=== PATIENT | female | born 1950 | race American Indian/Alaskan Native ===

== ENCOUNTER 2016-04-08 13:21 | Outpatient (CLI) | payer MEDICARE ==
--- NOTE | 2016-04-09 13:17 | Mammography Report ---
BILATERAL DIGITAL SCREENING MAMMOGRAM WITH CAD: 04/08/16 13:21:00 CLINICAL: Routine screening. COMPARISON:02/27/13 FINDINGS: The breasts are heterogeneously dense and sufficiently dense to limit the sensitivity of mammography. 2 groups of left calcifications require additional imaging. No mass or architectural distortion. The right breast is negative. IMPRESSION: Left calcifications requiring further workup. BI-RADS CATEGORY: 0 -- Additional Imaging Evaluation Required RECOMMENDATION: Recall for left ML and spot magnification CC and ML views. ACR BI-RADS MAMMOGRAPHIC CODES: 0 = Needs additional imaging evaluation; 1 = Negative; 2 = Benign; 3 = Probably benign; 4 = Suspicious; 5 = Malignant; 6 = Known biopsy-proven malignancy COMMENT: 1. Dense breast tissue, i.e., adenosis, fibrocystic changes, etc., may obscure an underlying neoplasm. 2. Approximately 10% of cancers are not detected with mammography. 3. A negative mammography report should not delay biopsy if a clinically suspicious mass is present. COMMENT: Patient follow-up letters are generated via our [employer] application.
== END 2016-04-08 13:22 | disposition home or self-care (01) ==
LOC: SPVWC 13:21
DX: Z12.31 Encounter for screening mammogram for malignant neoplasm of breast (principal)
CPT/HCPCS: 77067; G0202

== ENCOUNTER 2016-05-01 14:42 | Outpatient (CLI) | payer MEDICARE ==
--- NOTE | 2016-05-01 15:38 | Mammography Report ---
LEFT DIGITAL DIAGNOSTIC MAMMOGRAM : 05/01/16 14:42:00 CLINICAL: Recall for calcifications. COMPARISON:04/08/16 screening. FINDINGS: ML and ML and CC magnification views were performed and demonstrate three groups of probably benign calcifications. The largest group is located in the upper-outer quadrant and consists of a greater number of more punctate lower density calcifications than two other groups. No layering on the lateral view. No associated mass or architectural distortion. IMPRESSION: Probably benign calcifications BI-RADS CATEGORY: 3 -- Probably Benign RECOMMENDATION: 6 month follow-up magnification views of the left breast. ACR BI-RADS MAMMOGRAPHIC CODES: 0 = Needs additional imaging evaluation; 1 = Negative; 2 = Benign; 3 = Probably benign; 4 = Suspicious; 5 = Malignant; 6 = Known biopsy-proven malignancy COMMENT: 1. Dense breast tissue, i.e., adenosis, fibrocystic changes, etc., may obscure an underlying neoplasm. 2. Approximately 10% of cancers are not detected with mammography. 3. A negative mammography report should not delay biopsy if a clinically suspicious mass is present. COMMENT: Patient follow-up letters are generated by our [employer] application.
== END 2016-05-01 14:43 | disposition home or self-care (01) ==
LOC: SPVWC 14:42
DX: R92.1 Mammographic calcification found on diagnostic imaging of breast (principal); R92.8 Other abnormal and inconclusive findings on diagnostic imaging of breast
CPT/HCPCS: G0206-LT

== ENCOUNTER 2016-10-27 13:14 | Outpatient (CLI) | payer MEDICARE ==
--- NOTE | 2016-10-27 15:48 | Mammography Report ---
LEFT DIGITAL DIAGNOSTIC MAMMOGRAM : 10/27/16 13:14:00 CLINICAL: Six month follow-up calcifications. COMPARISON:05/01/16 FINDINGS: ML and CC magnification views demonstrate three groups of stable calcifications. The largest group in the upper outer quadrant consists of a greater number of more punctate lower density calcifications. The other 2 groups have fewer calcifications which are more dense and larger. No suspicious forms or distribution. No associated mass or architectural distortion. IMPRESSION: Stable probably benign calcifications. BI-RADS CATEGORY: 3 -- Probably Benign RECOMMENDATION: Bilateral diagnostic mammogram with magnification views of the left breast in six months. ACR BI-RADS MAMMOGRAPHIC CODES: 0 = Needs additional imaging evaluation; 1 = Negative; 2 = Benign; 3 = Probably benign; 4 = Suspicious; 5 = Malignant; 6 = Known biopsy-proven malignancy COMMENT: 1. Dense breast tissue, i.e., adenosis, fibrocystic changes, etc., may obscure an underlying neoplasm. 2. Approximately 10% of cancers are not detected with mammography. 3. A negative mammography report should not delay biopsy if a clinically suspicious mass is present. COMMENT: Patient follow-up letters are generated by our [employer] application.
== END 2016-10-27 13:15 | disposition home or self-care (01) ==
LOC: SPVWC 13:14
DX: R92.8 Other abnormal and inconclusive findings on diagnostic imaging of breast (principal)
CPT/HCPCS: G0206-LT

== ENCOUNTER 2017-04-28 12:48 | Outpatient (CLI) | payer MEDICARE ==
--- NOTE | 2017-04-28 14:34 | Mammography Report ---
BILATERAL DIGITAL DIAGNOSTIC MAMMOGRAM : 04/28/17 12:48:00 CLINICAL: Six month follow-up left calcifications and routine screening of the right breast. COMPARISON:Bilateral screening mammogram 05/01/16 and left mammogram 10/27/16 FINDINGS:Routine views plus ML and CC magnification views of left breast were performed. No mass or architectural distortion. Left calcifications are stable. The most notable group of calcifications is in the upper outer quadrant. IMPRESSION: Stable probably benign calcifications. BI-RADS CATEGORY: 3 -- Probably Benign RECOMMENDATION: 6 month follow-up left magnification views and routine screening of the right breast in one year. ACR BI-RADS MAMMOGRAPHIC CODES: 0 = Needs additional imaging evaluation; 1 = Negative; 2 = Benign; 3 = Probably benign; 4 = Suspicious; 5 = Malignant; 6 = Known biopsy-proven malignancy COMMENT: 1. Dense breast tissue, i.e., adenosis, fibrocystic changes, etc., may obscure an underlying neoplasm. 2. Approximately 10% of cancers are not detected with mammography. 3. A negative mammography report should not delay biopsy if a clinically suspicious mass is present. COMMENT: Patient follow-up letters are generated by our [employer] application.
== END 2017-04-28 12:49 | disposition home or self-care (01) ==
LOC: SPVWC 12:48
PROVIDERS: ATTEND Surgery
DX: R92.1 Mammographic calcification found on diagnostic imaging of breast (principal)
CPT/HCPCS: 77066

== ENCOUNTER 2017-11-10 13:47 | Outpatient (CLI) | payer MEDICARE ==
--- NOTE | 2017-11-10 14:27 | Mammography Report ---
BILATERAL DIGITAL DIAGNOSTIC MAMMOGRAM with CAD: 11/10/17 13:47:00 CLINICAL: Followup bilateral calcifications. COMPARISON:Mammograms at six month intervals going back to 04/08/16 FINDINGS: The breasts are heterogeneously dense, which may obscure small masses. Bilateral calcifications are stable.No mass, architectural distortion or suspicious calcifications. IMPRESSION: Bilateral benign calcifications. BI-RADS CATEGORY: 2 - - Benign RECOMMENDATION: Routine mammographic screening in one year. ACR BI-RADS MAMMOGRAPHIC CODES: 0 = Needs additional imaging evaluation; 1 = Negative; 2 = Benign; 3 = Probably benign; 4 = Suspicious; 5 = Malignant; 6 = Known biopsy-proven malignancy COMMENT: 1. Dense breast tissue, i.e., adenosis, fibrocystic changes, etc., may obscure an underlying neoplasm. 2. Approximately 10% of cancers are not detected with mammography. 3. A negative mammography report should not delay biopsy if a clinically suspicious mass is present. COMMENT: Patient follow-up letters are generated by our [employer] application.
== END 2017-11-10 13:48 | disposition home or self-care (01) ==
LOC: SPVWC 13:47
PROVIDERS: ATTEND Surgery
DX: R92.1 Mammographic calcification found on diagnostic imaging of breast (principal)

== ENCOUNTER 2018-05-11 13:42 | Outpatient (CLI) | payer MEDICARE ==
--- NOTE | 2018-05-11 14:17 | Mammography Report ---
BILATERAL DIGITAL SCREENING MAMMOGRAM with CAD : 05/11/18 13:42:00 CLINICAL: Routine screening. COMPARISON:11/10/17 FINDINGS: The breasts are heterogeneously dense, which may obscure small masses. No mass, architectural distortion or suspicious calcifications. IMPRESSION: No mammographic evidence of malignancy. BI-RADS CATEGORY: 2 -- Benign RECOMMENDATION: Routine mammographic screening in one year. COMMENT: Patient follow-up letters are generated by our [employer] application.
== END 2018-05-11 13:43 | disposition home or self-care (01) ==
LOC: SPVWC 13:42
PROVIDERS: ATTEND Surgery
DX: Z12.31 Encounter for screening mammogram for malignant neoplasm of breast (principal)
CPT/HCPCS: 77067

== ENCOUNTER 2020-05-22 13:15 | Outpatient (CLI) | payer MEDICARE ==
--- NOTE | 2020-05-22 17:58 | Mammography Report ---
DIGITAL SCREENING MAMMOGRAM WITH CAD, 05/22/2020 CLINICAL INFORMATION / INDICATION: Routine screening mammography. SCREENING MAMMO TECHNIQUE: Digital bilateral 2D mammography was obtained in the craniocaudal and mediolateral obliqu e projections. This examination was interpreted with the benefit of Computer-Aided Detection analysis . COMPARISON: 04/28/17 through 05/19/19. FINDINGS: Breast Density: The breasts are extremely dense, which lowers the sensitivity of mammography. No dominant mass, suspicious calcifications, or architectural distortion in either breast. Benign calcifications on the left are stable. No new abnormality is seen. IMPRESSION: No mammographic evidence of malignancy. Follow up recommendation: Routine yearly BI-RADS Category 2: Benign. A "normal" or negative report should not discourage follow up or biopsy of a clinically significant f inding. A written summary of these findings will be mailed to the patient. The patient will be entered into a mammography reporting system which will generate a reminder letter for the patient's next appointmen t at the appropriate interval. The [employer] recommends yearly mammograms starting at age 40 and continuing as l keyla as a woman is in good health. Breast MRI is recommended for women with an approximate 20-25% or greater lifetime risk of breast cancer, including women with a strong family history of breast or ova jonathan cancer or who have been treated for Hodgkin's disease. Signer Name: Ed Phan MD Signed: 05/22/2020 5:53 PM Workstation Name: [email or web address]
== END 2020-05-22 13:16 | disposition home or self-care (01) ==
LOC: SPVWC 13:15
PROVIDERS: ATTEND Surgery
DX: Z12.31 Encounter for screening mammogram for malignant neoplasm of breast (principal); N64.89 Other specified disorders of breast
CPT/HCPCS: 77067